=== PATIENT | female | born 2000 | race Two or more races ===

== ENCOUNTER 2025-01-03 22:13 | Emergency (ER) | payer MEDICAID, OTHER ==
[~2025-01-03] VITALS: Ht 172.7 cm; Wt 86.2 kg
[2025-01-03 23:19] LABS: Urine Bacteria MANY /hpf (None Seen); Urine Blood TRACE /uL (Negative); Urine Clarity Turbid (Clear); Urine Color Colorless (Yellow); Urine Mucus FEW (None Seen); Urine Protein, UAD 1+ (Negative); Urine Specific Gravity 1.018 (1.001-1.035); Urine Squamous Epithelial Cell FEW /hpf (<5); Urine Urobilinogen Normal (Negative); Urine WBC 93 /HPF (0-5); Urine WBC Clumps PRESENT /hpf (None Seen)
[2025-01-03] MEDS ORDERED: PREN-96 PO (23:35)
[2025-01-03] MEDS ORDERED: NITR-87 PO (23:44)
--- NOTE | 2025-01-04 12:47 | DVHDS2 ---
Physician Discharge Progress N Final Diagnosis: abd pain 20wks Operations or Procedures: Operations or Procedures nst,sono Condition on Discharge: Good Disposition: Home Discharge Instructions: Diet: Regular Activity: No Restrictions, As Tolerated Medications: na Follow Up Care: Specialist: 3d Discharge Statement: "Patient was advised to return to the ER or call 911 if any headaches, dizziness, shortness of breath, chest pain, abdominal pain, bleeding, fevers, or worsening of medical condition. Patient was counseled about treatment plan, medications, possible side effects, patientverbalized understanding. All questions were answered to the best of my ability. This discharge took greater then 30 minutes in planning, reviewing documentation, counseling the patient, and discussing with other team members." Visit Coding OBGYN Date of Service: Jan 04, 2025 Billing Provider: MARK GÓMEZ DO CONCRETE SCULPTOR Common Visit Codes: [id number] INP/OBS CARE (HIGH) CONCRETE SCULPTOR Procedure Codes: 58169-60- NON-STRESS TEST MARK GÓMEZ DO Jan 04, 2025 12:47
== END 2025-01-03 23:58 | disposition home or self-care (01) ==
LOC: ER 22:13 → LDRP 22:24
PROVIDERS: ADMIT Obstetrics & Gynecology; ATTEND Obstetrics & Gynecology
DX: O26.892 Other specified pregnancy related conditions, second trimester (principal); R10.31 Right lower quadrant pain; Z98.890 Other specified postprocedural states; Z79.899 Other long term (current) drug therapy; Z3A.20 20 weeks gestation of pregnancy
CPT/HCPCS: 59025; 81001; 81002; 94760; G0378

== ENCOUNTER 2025-04-10 19:49 | Observation (INO) | payer MEDICAID ==
[~2025-04-10] VITALS: Ht 172.7 cm; Wt 95.3 kg
[~2025-04-10 19:49] MED LIST: NITR-87 PO; PREN-96 PO
[2025-04-10 20:51] LABS: Basophils # (auto) 0 10 ^3/uL (0-0.2); Basophils % (auto) 0.4 % (0.0-2.0); Eosinophils # (auto) 0.2 10 ^3/uL (0-0.8); Eosinophils % (auto) 1.7 % (0.0-7.0); Hematocrit 29.7 % (36.0-46.0); Hemoglobin 9.9 g/dL (12.2-16.2); Lymphocytes # (auto) 1.5 10 ^3/uL (0.4-5.4); Lymphocytes % (auto) 13.9 % (10.0-50.0); Mean Corpuscular Hemoglobin 29.9 pg (28.0-32.0); Mean Corpuscular Hgb Conc. 33.2 g/dL (32.0-36.0); Mean Corpuscular Volume 90.1 fL (80.0-100.0); Monocytes # (auto) 1.1 10 ^3/uL (0-1.3); Monocytes % (auto) 9.8 % (0.0-12.0); Neutrophils # (auto) 8.1 10 ^3/uL (1.6-8.6); Neutrophils % (auto) 74.2 % (37.0-80.0); Nucleated Red Blood Cells % 0.1 %; Platelet Count (auto) 292 10^3/uL (140-450); Red Cell Distribution Width 18.2 % (11.8-14.3); White Blood Cell 10.9 10^3/uL (4.4-10.8)
--- NOTE | 2025-04-10 21:52 | DVHDS2 ---
Physician Discharge Progress N Final Diagnosis: Iron deficiency anemia in Problems List: (1) Iron deficiency anemia of mother during (2) 34 weeks gestation of Operations or Procedures: Operations or Procedures S: 24yo IUP@34.2wks presents to OB triage with c/o dizziness and feeling lightheaded. She reports barely drinking water today. Denies UCs/LOF/VB/PAZ/vision changes/RUQ pain. Endorses +FM. PNC with Dr. Sary Israel, complicated by iron deficiency anemia, taking oral Iron BID. She states she wants to transfer her care to [facility] OB. O: VSS NST reactive PO hydrated with 2 pitchers of water and pt states she is no longer dizzy Laboratory Tests Test 04/10/25 20:45 04/10/25 21:00 Range/Units White Blood Count 10.9 H 4.4-10.8 10^3/uL Red Blood Count 3.30 L 4.0-5.20 10^6/uL Hemoglobin 9.9 L 12.2-16.2 g/dL Hematocrit 29.7 L 36.0-46.0 % Mean Corpuscular Volume 90.1 80.0-100.0 fL Mean Corpuscular Hemoglobin 29.9 28.0-32.0 pg Mean Corpuscular Hemoglobin Concent 33.2 32.0-36.0 g/dL Red Cell Distribution Width 18.2 H 11.8-14.3 % Platelet Count 292 140-450 10^3/uL Mean Platelet Volume 6.8 L 6.9-10.8 fL Neutrophils (%) (Auto) 74.2 37.0-80.0 % Lymphocytes (%) (Auto) 13.9 10.0-50.0 % Monocytes (%) (Auto) 9.8 0.0-12.0 % Eosinophils (%) (Auto) 1.7 0.0-7.0 % Basophils (%) (Auto) 0.4 0.0-2.0 % Neutrophils # (Auto) 8.1 1.6-8.6 10 ^3/uL Lymphocytes # (Auto) 1.5 0.4-5.4 10 ^3/uL Monocytes # (Auto) 1.1 0-1.3 10 ^3/uL Eosinophils # (Auto) 0.2 0-0.8 10 ^3/uL Basophils # (Auto) 0 0-0.2 10 ^3/uL Nucleated Red Blood Cells 0.1 % POC Glucose 97 70-106 mg/dl A: 24yo IUP@34.2wks Iron deficiency anemia in P: D/C home Encouraged to drink 1 gallon of water a day. FKC/PTL/PreE precautions reviewed. [facility] OB office Business card given to pt. Instructed to call [facility] OB office for appt next week and get records from Dr. Israel's office to bring to the first appt. Dr. Rios consulted, agrees with POC. Condition on Discharge: Stable Disposition: Home Discharge Instructions: Diet: Regular Activity: No Restrictions, As Tolerated Medications: see med list Follow Up Care: Specialist: Instructed to call [facility] OB office for appt next week Discharge Statement: "Patient was advised to return to the ER or call 911 if any headaches, dizziness, shortness of breath, chest pain, abdominal pain, bleeding, fevers, or worsening of medical condition. Patient was counseled about treatment plan, medications, possible side effects, patientverbalized understanding. All questions were answered to the best of my ability. This discharge took greater then 30 minutes in planning, reviewing documentation, counseling the patient, and discussing with other team members." Visit Coding OBGYN Date of Service: Apr 10, 2025 Billing Provider: REBECCA GUDINO CNM FILLING AND STAPLING MACHINE OPERATOR Common Visit Codes: [id number] OBS CARE (HIGH) FILLING AND STAPLING MACHINE OPERATOR Procedure Codes: 64893-13- NON-STRESS TEST REBECCA GUDINO CNM Apr 10, 2025 21:52
== END 2025-04-10 21:32 | disposition home or self-care (01) ==
LOC: LDRP 19:49
PROVIDERS: ADMIT Obstetrics & Gynecology; ATTEND Obstetrics & Gynecology
DX: O99.013 Anemia complicating pregnancy, third trimester (principal); D50.9 Iron deficiency anemia, unspecified; O26.893 Other specified pregnancy related conditions, third trimester; R42 Dizziness and giddiness; Z3A.34 34 weeks gestation of pregnancy; Z79.899 Other long term (current) drug therapy; Z98.890 Other specified postprocedural states
CPT/HCPCS: 36415; 59025; 81002; 82948; 82962; 85025; 94760; G0378

== ENCOUNTER 2025-05-07 14:16 | Observation (INO) | payer MEDICAID ==
[2025-05-07 16:02] LABS: Vaginal Bacteria Few; Vaginal Clue Cells None Seen; Vaginal Epithelial Cells Few; Vaginal Trichomonas Not Present
--- NOTE | 2025-05-07 17:03 | DVH ---
BIOPHYSICAL PROFILE HISTORY: Possible SROM TECHNIQUE: Multiple transabdominal real-time grayscale sonographic images through the gravid uterus of the fetus with duplex Doppler color flow and M-mode spectral analysis FINDINGS: BIOPHYSICAL PROFILE: breathing score: 2 movement score: 2 tone score: 2 Quantitative ALYSIA score: 2 (ALYSIA: 12.4 Cm.) Total score: 8 The cervix is not well-visualized Single live fetus in cephalic presentation. heart rate 140 beats per minute. Fundal placenta without previa or abruption IMPRESSION: Biophysical profile score: 8
--- NOTE | 2025-05-07 18:18 | DVHDS2 ---
Physician Discharge Progress N Final Diagnosis: intact amniotic membranes Problems List: (1) Intact amniotic membranes during in third trimester Operations or Procedures: Operations or Procedures S: 24yo IUP@38.1wks presents to OB triage from [facility] office with c/o LOF at 1330 in the shower today. +FM, denies UCs/VB/PAZ/vision changes/RUQ pain. PNC initially with Dr. Sary Israel then transferred to [facility] with Catie sorto CNM. PNC uncomplicated. GBS negative. O: VSS NST reactive SSE by RN: negative nitrazine and pooling, leukorrhea noted Laboratory Tests Test 05/07/25 15:30 Range/Units Placental [id number]-[id number] Negative Vaginal WBC (Wet Prep) Few Vaginal RBC (Wet Prep) None seen Vaginal Epithelial Cells (Wet Prep) Few Vaginal Bacteria (Wet Prep) Few Vaginal Trichomonas (Wet Prep) Not present Vaginal Yeast (Wet Prep) None seen Vaginal Clue Cells (Wet Prep) None seen A: 24yo IUP@38.1wks Intact amniotic membranes P: D/C home FKC/PreE/Labor precautions reviewed. Other Interventions Other Interventions [place] [id number] Ph: [phone] DIAGNOSTIC IMAGING Diagnostic Imaging Report : [id number] Signed PATIENT: JUAN A MICHAUDCCT: [id number] UNIT: [id number] : 2000 LOC: [facility] ROOM / BED: TRIAGE2 / A AGE / SEX: 24 / F ADM STATUS: DIS IN SERVICE 1611 ORDERING PHYSICIAN: REBECCA SORTO CNM PROCEDURE(s): BPP - BIOPHYSICAL PROFILE REASON: Possible SROM ORDER NUMBER(s): [id number], ACCESSION NUMBER(s): [id number] BIOPHYSICAL PROFILE HISTORY: Possible SROM TECHNIQUE: Multiple transabdominal real-time grayscale sonographic images through the gravid uterus of the fetus with duplex Doppler color flow and M-mode spectral analysis FINDINGS: BIOPHYSICAL PROFILE: breathing score: 2 movement score: 2 tone score: 2 Quantitative ALYSIA score: 2 (ALYSIA: 12.4 Cm.) Total score: 8 The cervix is not well-visualized Single live fetus in cephalic presentation. heart rate 140 beats per mi nute. Fundal placenta without previa or abruption IMPRESSION: Biophysical profile score: 8 ATED BY: ANI SHEPHERD DO DICTATED DATE/TIME: 05/07/25 1700 SIGNED BY: ANI SHEPHERD DO SIGNED DATE/TIME: 05/07/25 1700 CC: Condition on Discharge: Stable Disposition: Home Discharge Instructions: Diet: Regular Activity: No Restrictions, As Tolerated Medications: see med list Follow Up Care: Specialist: f/u with NEYMAR as scheduled on 05/14/25. Discharge Statement: "Patient was advised to return to the ER or call 911 if any headaches, dizziness, shortness of breath, chest pain, abdominal pain, bleeding, fevers, or worsening of medical condition. Patient was counseled about treatment plan, medications, possible side effects, patientverbalized understanding. All questions were answered to the best of my ability. This discharge took greater then 30 minutes in planning, reviewing documentation, counseling the patient, and discussing with other team members." Visit Coding OBGYN Date of Service: May 07, 2025 Billing Provider: REBECCA SORTO CNM VAMP STITCHER Common Visit Codes: [id number] OBS CARE (MOD) VAMP STITCHER Procedure Codes: 90531-49- NON-STRESS TEST REBECCA SORTO CNM May 07, 2025 18:18
== END 2025-05-07 16:49 | disposition home or self-care (01) ==
LOC: LDRP 14:16
PROVIDERS: ADMIT Obstetrics & Gynecology; ATTEND Obstetrics & Gynecology
DX: O34.63 Maternal care for abnormality of vagina, third trimester (principal); N89.8 Other specified noninflammatory disorders of vagina; Z3A.38 38 weeks gestation of pregnancy; Z79.899 Other long term (current) drug therapy; Z98.890 Other specified postprocedural states
CPT/HCPCS: 59025; 76819; 81002; 84112; 87210; G0378

== ENCOUNTER 2025-05-21 11:00 | Inpatient (IN) | payer MEDICAID ==
[~2025-05-21] VITALS: Ht 172.7 cm; Wt 97.5 kg
--- NOTE | 2025-05-21 11:59 | DVH ---
BIOPHYSICAL PROFILE HISTORY: term Comparison Study: US BIOPHYSICAL PROFILE on DOS: 05/07/25 TECHNIQUE: Multiple real-time grayscale sonographic images through the gravid uterus of the fetus wi th duplex Doppler color flow and M-mode spectral analysis FINDINGS: BIOPHYSICAL PROFILE: breathing score: 2 movement score: 2 tone score: 2 Quantitative ALYSIA score: 2 (ALYSIA: 14.7 Cm.) Total score: 8 The cervix is not visualized Single live fetus in cephalic presentation. heart rate 130 beats per minute. Posterior placenta without previa or abruption IMPRESSION: Biophysical profile score: 8
[2025-05-21] MEDS ORDERED: LIDOCAINE 2%HCL (LOCAL ANESTH.) INJ 20ML MDV IJ PRN (16:15)
[2025-05-21 16:32] LABS: Hematocrit 30.6 % (36.0-46.0); Hemoglobin 10.3 g/dL (12.2-16.2); Mean Corpuscular Hemoglobin 29.8 pg (28.0-32.0); Mean Corpuscular Volume 88.5 fL (80.0-100.0); Nucleated Red Blood Cells % 0.4 %
[2025-05-21 16:45] LABS: Alanine Aminotransferase 17 U/L (7-40); Albumin 3.8 g/dL (3.2-4.8); Alkaline Phosphatase 107 U/L (46-116); Anion Gap 9 (5-15); Bilirubin, Total 0.5 mg/dL (0.2-1.0); Calcium 8.9 mg/dL (8.7-10.4); Carbon Dioxide 22 mmol/L (20-31); Glucose 79 mg/dL (74-106); Potassium 3.7 mmol/L (3.5-5.1); Sodium 138 mmol/L (136-145); Total Protein 6.1 g/dL (5.7-8.2)
[2025-05-21 16:46] LABS: INR 0.93 (0.9-1.15); Partial Thromboplastin Time 26.2 SEC (24.5-34.5); Prothrombin Time 9.9 sec (9.3-11.8)
[2025-05-21 16:47] LABS: BUN/Creatinine Ratio 9.6 (10.0-20.0); Blood Urea Nitrogen < 5 mg/dL (9-23); Chloride 107 mmol/L (98-107)
--- NOTE | 2025-05-21 16:56 | DVH ---
LIMITED OB ULTRASOUND > 14 WKS: HISTORY: Cat II tracing TECHNIQUE: Multiple real-time grayscale images of the gravid uterus with duplex Doppler color flow an d M-mode spectral analysis. TRANSDUCER: Transabdominal FINDINGS: IUP single live fetus at 39 weeks 5 days based on composite averages of the BPD, head circumference, abdominal circumference and femur length Estimated weight 38 L3 ; 8 lb 6 oz grams heart rate 139.81 beats per minute MVP: 5.8 cm Cervix not visible Cephalic Presentation Posterior Grade 2-3 Placenta without previa or abruption. BPD: 9.84 cm consistent with 40 weeks 2 days ; range 37 weeks 1 day- 43 weeks 4 days HC: 34.95 cm consistent with 40 weeks 4 days range 38 weeks 0 days - 43 weeks 2 days AC: 35.44 cm consistent with 39 weeks 2 days range 36 weeks 2 days- 42 weeks 3 days FL: 7.57 cm consistent with 38 weeks 5 days range 35 weeks 4 days 41 weeks 6 days. FL/AC: 21.36 range 20-24 FL/HC: 21.66 range 20.67-22.76 HC/AC: 0.99 range 0.89 - 1.04) HR: 140 beats per minute CI: 81.56 range 70-86 EFW: 38 0 3 g +/-570.5 g (8 lb 6 oz +/-1 lb 4 oz) IMPRESSION: 1. IUP single live fetus at 39 weeks 5 days AUA corresponding to an ENEIDA of 05/23/2025 2. FHR: 140 bpm
[2025-05-21] MEDS: DINOPROSTONE 10MG VAG SUPP PV ONE (17:02)
--- NOTE | 2025-05-21 17:57 | DVHHP2 ---
OB CC & HPI Date Date of Admission: May 21, 2025 Patient Identification: : 2 Para: 0 EDC: May 20, 2025 EGA: 40.1wks Chief Complaints: Reason for admission: induction of labor Indication for induction: other (Category 2 EFM) Admission Nurse Assessment Rev: Yes History of Present Complaints 24y/o IUP@40.1wks that presents to OB triage for NST/BPP term . Category II EFM noted, pt repositioned and IV fluid bolus given. IOL recommended. Dr. Rios offered primary section due to EFW 3803g today. Discussed shoulder dystocia risks of possible erbs palsy, broken clavicle, broken humerus, and asphyxia. Pt verbalized understanding and wants to proceed with IOL for vaginal delivery, declined c/s. Pt having some UCs. Denies LOF/VB/PAZ/vision changes/RUQ pain. Endorses +FM. PNC with Dr. Israel initially then transferred care to [facility] with Catie Torres CNM, PNC uncomplicated. GTT wnl, dating based on LMP c/w 13wk sono, GBS negative. Past Medical History Cardiac: No pertinent Hx Pulmonary: No pertinent Hx Central Nervous System: No pertinent Hx GI: No pertinent Hx Hemotology/Oncology: No pertinent Hx Hepatobiliary: No pertinent Hx Psychiatric: No pertinent Hx Musculoskeletal: No pertinent Hx Rheumotologic: No pertinent Hx Infectious Disease: No peritnent Hx ENT: No pertinent Hx Renal/: No pertinent Hx Endocrine: No pertinent Hx Dermatology: Other (keloid on Right ear) Past Surgical History: No pertinent Hx OB History OB History Care: Good Care Ultrasounds: Normal mid trimester US Obstetrical Complications: None Medical Complications: None Allergies: Coded Allergies: NO KNOWN ALLERGIES (Unverified , 01/03/25) Home Meds Reported Medications Nitrofurantoin Monohydrate Mac (Macrobid) 100 Mg Cap, 100 MG PO for 7 Days, CAP 01/03/25 Vit W/ Ferrous Fumara ( One Daily) Daily Tab, 1 TAB PO DAILY, #30 TAB 11 Refills 01/03/25 Current Medications Current Medications Medications (Trade) Dose Ordered Sig/Jose Carlos Route PRN Reason Start Time Stop Time Status Last Admin Lactated Ringer's 1,000 ml @ 125 mls/hr Q8H IV 05/21/25 16:15 Witch Stephania (Tucks) 1 pad PRN PRN TOP PERINEAL AREA DISCOMFORT 05/21/25 16:15 Sodium Lauryl Sulfate (Phisoderm) 240 ml PRN PRN TOP PERINEAL AREA DISCOMFORT 05/21/25 16:15 Benzocaine (Dermoplast) 1 applic PRN PRN TOP PERINEAL AREA DISCOMFORT 05/21/25 16:15 Lidocaine HCl (Xylocaine) 20 ml ONCE PRN IJ PERINEAL AREA DISCOMFORT 05/21/25 16:15 Family & Social History Family/Social History Past Family/Social History: denies Blood Type: O+ Rubella: immune RPR/VDRL: Negative GBS Status: Negative HBsAG: Negative Review of Systems Constitutional: No symptom reported Ears, Nose, & Throat: No symptom reported Eyes: No symptom reported Pulmonary/Respiratory: No symptom reported Cardiovascular: No symptom reported Gastrointestinal: No symptom reported Genitourinary: No symptom reported Musculoskeletal: No symptom reported Skin: No symptom reported Psychiatric: No symptom reported Endocrine: No symptom reported Hemotologic/Lymphatic: No symptom reported OB Admission Exam Physical Exam Vitals: VSS, see CPN [place] [id number] Ph: [phone] DIAGNOSTIC IMAGING Diagnostic Imaging Report : [id number] Signed PATIENT: JUAN A MICHAUDCCT: [id number] UNIT: [id number] : 2000 LOC: [facility] ROOM / BED: TRIAGE2 / A AGE / SEX: 24 / F ADM STATUS: ADM IN SERVICE 1435 ORDERING PHYSICIAN: MARK RIOS DO PROCEDURE(s): OBUS - OB ULTRASOUND COMP GTR 14 WKS REASON: Cat II tracing ORDER NUMBER(s): [id number], ACCESSION NUMBER(s): [id number] LIMITED OB ULTRASOUND > 14 WKS: HISTORY: Cat II tracing TECHNIQUE: Multiple real-time grayscale images of the gravid uterus with duplex Doppler color flow and M-mode spectral analysis. TRANSDUCER: Transabdominal FINDINGS: IUP single live fetus at 39 weeks 5 days based on composite averages of the BPD, head circumference, abdominal circumference and femur length Estimated weight 38 L3 ; 8 lb 6 oz grams heart rate 139.81 beats per minute MVP: 5.8 cm Cervix not visible Cephalic Presentation Posterior Grade 2-3 Placenta without previa or abruption. BPD: 9.84 cm consistent with 40 weeks 2 days ; range 37 weeks 1 day- 43 weeks 4 days HC: 34.95 cm consistent with 40 weeks 4 days range 38 weeks 0 days - 43 weeks 2 days AC: 35.44 cm consistent with 39 weeks 2 days range 36 weeks 2 days- 42 weeks 3 days FL: 7.57 cm consistent with 38 weeks 5 days range 35 weeks 4 days 41 weeks 6 days. FL/AC: 21.36 range 20-24 FL/HC: 21.66 range 20.67-22.76 HC/AC: 0.99 range 0.89 - 1.04) HR: 140 beats per minute CI: 81.56 range 70-86 EFW: 38 0 3 g +/-570.5 g (8 lb 6 oz +/-1 lb 4 oz) IMPRESSION: 1. IUP single live fetus at 39 weeks 5 days AUA corresponding to an ENEIDA of 05/23/2025 2. FHR: 140 bpm ATED BY: ABI ESCALANTE Jr., DO DICTATED DATE/TIME: 05/21/251653 SIGNED BY: ABI ESCALANTE Jr., SIGNED DATE/TIME: 05/21/251653 CC: HEENT: TMs Normal, Fontanelles Normal, Nasal Mucosa Normal, Eyes non-injected, Oropharynx Normal, PERRLA, Moist Membranes, EOMI Heart: Rhythm Normal Lungs: Clear Abdomen: Gravid Extremities: Normal Reflexes: Normal Pelvic Exam: cervidil placed Cervical Dilatation: 1cm Effacement: 50% Station: -2 Membranes: Intact Heart Rate: 140's Accelerations: Accelerations Present Decelerations: No Decelerations Group Home Variability: Average (6-25) Contractions on Admission: 6-10 Minutes Apart Date/Time Contractions Began: 05/21/2025 Frequency of Contractions: 2-8 min Duration: see CPN Intensity: Mild OB Plan Plan Admitting Diagnosis: 24yo IUP@40.1wks Induction of Labor for Category II EFM Intact Amniotic Membranes GBS negative Plan: Induction Induction Methd: Cervidal protocol Other Plan: Cervidil for IOL, Will be in place for 12 hours unless otherwise indicated Pain mgmt PRN Frequent position changes in and out of bed encouraged Limit SVE unless necessary Intrauterine resuscitation PRN Anticipate Visit Coding OBGYN Date of Service: May 21, 2025 Billing Provider: REBECCA TORRES CNM ICE CREAM SERVER Common Visit Codes: [id number] INP/OBS CARE (MOD) ICE CREAM SERVER Procedure Codes: 90152-87- NON-STRESS TEST MARLENY OJEDA May 21, 2025 17:57
[2025-05-21 20:38] LABS: Urine Protein, UAD Negative (Negative)
[2025-05-21 20:48] LABS: Amphetamine Screen, Urine Neg (NEGATIVE); Barbiturate Scree,Urine Neg (NEGATIVE); Benzodiazephine Screen, Urine Neg (NEGATIVE); Cannabinoid Screen, Urine Neg (NEGATIVE); Cocaine Screen, Urine Neg (NEGATIVE); Opiate Scree,Urine Neg (NEGATIVE); Phencyclidine Screen, Urine Neg (NEGATIVE)
--- NOTE | 2025-05-21 21:09 | DVHPN2 ---
CNM Labor Progress Note Date and Time Seen Date Seen: May 21, 2025 Time Seen: 20:40 Subjective Patient reports: Feels worse (pt c/o SOB) Subjective Comment 24yo IUP @ 40.1wk, reports new onset of SOB and heavy feeling in chest, denies anxiety but partner reports pt has anxiety like this in the past Objective Vital Signs VSS, see CPN Monitoring Method Monitoring Method: External Heart Rate Heart Rate Baseline: 150 Heart Rate Variability: Moderate Presence of FHR Accelerations: Yes Presence of FHR Decelerations: No Changes in Trends of Patterns: No Are all 5 Components of the FH: Yes Contractions Contractions Frequency: Occasional Duration of Contraction: 120 Contractions Intensity: Mild Contractions Resting Tone: Relaxed Membranes Membranes: Intact Vaginal Exam Vag Exam Deferred: Yes Medications Medications - Pitocin: No Medication - Epidural: No Medication - Other cervidil placed for IOL Lab Results Lab Results Current Medications Medications (Trade) Dose Ordered Sig/Jose Cralos Start Time Stop Time Status Last Admin Dose Admin Dinoprostone (Cervidil Suppository) 1 supp ONCE ONCE 05/21/25 16:15 05/21/25 16:33 DC 05/21/25 17:02 1 SUPP Lactated Ringer's 1,000 ml @ 125 mls/hr Q8H 05/21/25 16:15 Witch Stephania (Tucks) 1 pad PRN PRN 05/21/25 16:15 Sodium Lauryl Sulfate (Phisoderm) 240 ml PRN PRN 05/21/25 16:15 Benzocaine (Dermoplast) 1 applic PRN PRN 05/21/25 16:15 Lidocaine HCl (Xylocaine) 20 ml ONCE PRN 05/21/25 16:15 Laboratory Tests Test 05/21/25 20:30 05/21/25 16:10 Range/Units Urine Color Pending Urine Clarity Pending Urine pH Pending Urine Specific [place] Pending Urine Protein Pending Urine Ketones Pending Urine Blood Pending Urine Nitrite Pending Urine Bilirubin Pending Urine Urobilinogen Pending Urine Leukocyte Esterase Pending Urine RBC Pending Urine Microscopic WBC Pending Urine Squamous Epithelial Cells Pending Urine Bacteria Pending Urine Glucose Pending Urine Opiates Screen Neg NEGATIVE Urine Fentanyl Screen Neg NEGATIVE Urine Barbiturates Screen Neg NEGATIVE Urine Phencyclidine Screen Neg NEGATIVE Urine Amphetamines Screen Neg NEGATIVE Urine Benzodiazepines Screen Neg NEGATIVE Urine Cocaine Screen Neg NEGATIVE Urine Cannabinoids Screen Neg NEGATIVE White Blood Count 10.5 4.4-10.8 10^3/uL Red Blood Count 3.46 L 4.0-5.20 10^6/uL Hemoglobin 10.3 L 12.2-16.2 g/dL Hematocrit 30.6 L 36.0-46.0 % Mean Corpuscular Volume 88.5 80.0-100.0 fL Mean Corpuscular Hemoglobin 29.8 28.0-32.0 pg Mean Corpuscular Hemoglobin Concent 33.7 32.0-36.0 g/dL Red Cell Distribution Width 18.2 H 11.8-14.3 % Platelet Count 284 140-450 10^3/uL Mean Platelet Volume 7.6 6.9-10.8 fL Neutrophils (%) (Auto) 75.8 37.0-80.0 % Lymphocytes (%) (Auto) 13.1 10.0-50.0 % Monocytes (%) (Auto) 8.9 0.0-12.0 % Eosinophils (%) (Auto) 1.2 0.0-7.0 % Basophils (%) (Auto) 1.0 0.0-2.0 % Neutrophils # (Auto) 8.0 1.6-8.6 10 ^3/uL Lymphocytes # (Auto) 1.4 0.4-5.4 10 ^3/uL Monocytes # (Auto) 0.9 0-1.3 10 ^3/uL Eosinophils # (Auto) 0.1 0-0.8 10 ^3/uL Basophils # (Auto) 0.1 0-0.2 10 ^3/uL Nucleated Red Blood Cells 0.4 % Prothrombin Time 9.9 9.3-11.8 sec Prothrombin Time INR 0.93 0.9-1.15 Activated Partial Thromboplast Time 26.2 24.5-34.5 SEC Sodium Level 138 136-145 mmol/L Potassium Level 3.7 3.5-5.1 mmol/L Chloride Level 107 98-107 mmol/L Carbon Dioxide Level 22 20-31 mmol/L Anion Gap 9 5-15 Blood Urea Nitrogen < 5 L 9-23 mg/dL Creatinine 0.52 L 0.550-1.02 mg/dL Glomerular Filtration Rate Calc 134 >90 mL/min BUN/Creatinine Ratio 9.6 L 10.0-20.0 Serum Glucose 79 74-106 mg/dL Calcium Level 8.9 8.7-10.4 mg/dL Total Bilirubin 0.5 0.2-1.0 mg/dL Aspartate Amino Transferase (AST) 23 13-40 U/L Alanine Aminotransferase (ALT) 17 7-40 U/L Alkaline Phosphatase 107 46-116 U/L Total Protein 6.1 5.7-8.2 g/dL Albumin 3.8 3.2-4.8 g/dL Assessment Assessment A: 24yo IUP@40.1wks Induction of Labor Category I EFM Intact Membranes GBS negative Plan Plan EKG ordered Pain mgmt PRN Frequent position changes in and out of bed encouraged Limit SVE unless necessary Intrauterine resuscitation PRN Anticipate Plan discussed with: Patient, Other (partner) Visit Coding OBGYN Date of Service: May 21, 2025 Billing Provider: REBECCA GUDINO CNM CADDIE SUPERVISOR Common Visit Codes: [id number] INP/OBS CARE(MOD) REBECCA GUDINO CNM May 21, 2025 21:09
[2025-05-21] MEDS: DERMOPLAST 60ML BOTTLE TOP PRN (22:09)
[2025-05-21] MEDS: PHISODERM TOP SOLN 240ML BTL TOP PRN (22:09)
[2025-05-21] MEDS: WITCH HAZEL-GLYCERIN PAD TOP PRN (22:09)
[2025-05-22] MEDS: ROPIVACAINE HCL 100 ML ONE
[2025-05-22] MEDS: LACTATED RINGER'S 1,000 ML IV SCH (02:24)
--- NOTE | 2025-05-22 05:29 | DVHPN2 ---
OB Labor Progress Note Date and Time Seen Date Seen: May 22, 2025 Time Seen: 05:05 Subjective Patient reports: No new complaints Subjective Comment 24y/o IUP @ 40.2wk IOL, reports SOB resolved Objective Vital Signs VSS see CPN Monitoring Method Monitoring Method: External Heart Rate Heart Rate Baseline: 125 Heart Rate Variability: Moderate Presence of FHR Accelerations: Yes Presence of FHR Decelerations: No Changes in Trends of Patterns: No Are all 5 Components of the FH: Yes Contractions Contractions Frequency: Occasional (1-3 min, lots of irritability) Duration of Contraction: 90 Contractions Intensity: Mild Contractions Resting Tone: Relaxed Membranes Membranes: Intact Vaginal Exam Vag Exam Deferred: No (1.550/-3, cervidil taken out) Vaginal Exam Presentation: VTX Vaginal Exam Show: None Medications Medications - Pitocin: No Medication - Epidural: No Lab Results Lab Results Current Medications Medications (Trade) Dose Ordered Sig/Jose Carlos Start Time Stop Time Status Last Admin Dose Admin Dinoprostone (Cervidil Suppository) 1 supp ONCE ONCE 05/21/25 16:15 05/21/25 16:33 DC 05/21/25 17:02 1 SUPP Lactated Ringer's 1,000 ml @ 125 mls/hr Q8H 05/21/25 16:15 05/22/25 13:30 125 MLS/HR Witch Stephania (Tucks) 1 pad PRN PRN 05/21/25 16:15 05/21/25 22:09 1 PAD Sodium Lauryl Sulfate (Phisoderm) 240 ml PRN PRN 05/21/25 16:15 05/21/25 22:09 240 ML Benzocaine (Dermoplast) 1 applic PRN PRN 05/21/25 16:15 05/21/25 22:09 1 APPLIC Lidocaine HCl (Xylocaine) 20 ml ONCE PRN 05/21/25 16:15 Misoprostol (Cytotec) 50 mcg Q4HPRN PRN 05/22/25 05:15 05/22/25 13:30 50 MCG Laboratory Tests Test 05/21/25 20:30 05/21/25 16:10 Range/Units Urine Color Light-yellow Yellow Urine Clarity Clear Clear Urine pH 7.0 5.0-9.0 Urine Specific [place] 1.012 1.001-1.035 Urine Protein Negative Negative Urine Ketones 3+ H Negative Urine Blood Negative Negative /uL Urine Nitrite Negative Negative Urine Bilirubin Negative Negative Urine Urobilinogen Normal Negative mg/dL Urine Leukocyte Esterase 2+ Negative /uL Urine RBC <1 0 - 4 /hpf Urine Microscopic WBC 1 0-5 /HPF Urine Squamous Epithelial Cells Few <5 /hpf Urine Bacteria None seen None Seen /hpf Urine Glucose Normal Normal mg/dL Urine Opiates Screen Neg NEGATIVE Urine Fentanyl Screen Neg NEGATIVE Urine Barbiturates Screen Neg NEGATIVE Urine Phencyclidine Screen Neg NEGATIVE Urine Amphetamines Screen Neg NEGATIVE Urine Benzodiazepines Screen Neg NEGATIVE Urine Cocaine Screen Neg NEGATIVE Urine Cannabinoids Screen Neg NEGATIVE White Blood Count 10.5 4.4-10.8 10^3/uL Red Blood Count 3.46 L 4.0-5.20 10^6/uL Hemoglobin 10.3 L 12.2-16.2 g/dL Hematocrit 30.6 L 36.0-46.0 % Mean Corpuscular Volume 88.5 80.0-100.0 fL Mean Corpuscular Hemoglobin 29.8 28.0-32.0 pg Mean Corpuscular Hemoglobin Concent 33.7 32.0-36.0 g/dL Red Cell Distribution Width 18.2 H 11.8-14.3 % Platelet Count 284 140-450 10^3/uL Mean Platelet Volume 7.6 6.9-10.8 fL Neutrophils (%) (Auto) 75.8 37.0-80.0 % Lymphocytes (%) (Auto) 13.1 10.0-50.0 % Monocytes (%) (Auto) 8.9 0.0-12.0 % Eosinophils (%) (Auto) 1.2 0.0-7.0 % Basophils (%) (Auto) 1.0 0.0-2.0 % Neutrophils # (Auto) 8.0 1.6-8.6 10 ^3/uL Lymphocytes # (Auto) 1.4 0.4-5.4 10 ^3/uL Monocytes # (Auto) 0.9 0-1.3 10 ^3/uL Eosinophils # (Auto) 0.1 0-0.8 10 ^3/uL Basophils # (Auto) 0.1 0-0.2 10 ^3/uL Nucleated Red Blood Cells 0.4 % Prothrombin Time 9.9 9.3-11.8 sec Prothrombin Time INR 0.93 0.9-1.15 Activated Partial Thromboplast Time 26.2 24.5-34.5 SEC Sodium Level 138 136-145 mmol/L Potassium Level 3.7 3.5-5.1 mmol/L Chloride Level 107 98-107 mmol/L Carbon Dioxide Level 22 20-31 mmol/L Anion Gap 9 5-15 Blood Urea Nitrogen < 5 L 9-23 mg/dL Creatinine 0.52 L 0.550-1.02 mg/dL Glomerular Filtration Rate Calc 134 >90 mL/min BUN/Creatinine Ratio 9.6 L 10.0-20.0 Serum Glucose 79 74-106 mg/dL Calcium Level 8.9 8.7-10.4 mg/dL Total Bilirubin 0.5 0.2-1.0 mg/dL Aspartate Amino Transferase (AST) 23 13-40 U/L Alanine Aminotransferase (ALT) 17 7-40 U/L Alkaline Phosphatase 107 46-116 U/L Total Protein 6.1 5.7-8.2 g/dL Albumin 3.8 3.2-4.8 g/dL Hepatitis C Antibody Negative Negative Assessment Assessment 24yo IUP@40.2wks Induction of Labor Category I EFM Intact Membranes GBS negative Plan Plan cytotec PO ordered monitoring per order Pain mgmt PRN Frequent position changes in and out of bed encouraged Limit SVE unless necessary Intrauterine resuscitation PRN Anticipate Plan discussed with: Patient, Other (partner) Visit Coding OBGYN Date of Service: May 22, 2025 Billing Provider: REBECCA GUDINO CNM AIRWORTHINESS SAFETY INSPECTOR Common Visit Codes: [id number] INP/OBS CARE(MOD) MARLENY OJEDA May 22, 2025 05:28
--- NOTE | 2025-05-22 07:31 | ECG ---
[facility] Test Date: 2025-05-21 Test Time: 21:02:22 Pat Name: AMALIA MICHAUD Department: Room: [facility] A Gender: F Sack Cleaning Hand: THUAN : 2000 Requested By: REBECCA GUDINO Order Number: [id number] Reading MD: Devante Danielle Measurements Intervals [place] Rate: 77 P: -20 WV: 124 QRS: 13 QRSD: 72 T: 20 QT: 386 QTc: 436 Interpretive Statements Normal sinus rhythm RSR' or QR pattern in V1 suggests right ventricular conduction delay Electronically Signed On 05-27-2025 18:33:29 PDT by Devante Danielle Please click the below link to view image of tracing.
--- NOTE | 2025-05-22 08:01 | DVHPN2 ---
Chief Complaints Patient reports: No new complaints Nursing reports: No new complaints Objective Medications Current Medications Medications (Trade) Dose Ordered Sig/Jose Carlos Route PRN Reason Start Time Stop Time Status Last Admin Benzocaine (Dermoplast) 1 applic PRN PRN TOP PERINEAL AREA DISCOMFORT 05/21/25 16:15 05/21/25 22:09 Lactated Ringer's 1,000 ml @ 125 mls/hr Q8H IV 05/21/25 16:15 05/22/25 02:24 Lidocaine HCl (Xylocaine) 20 ml ONCE PRN IJ PERINEAL AREA DISCOMFORT 05/21/25 16:15 Misoprostol (Cytotec) 50 mcg Q4HPRN PRN PO CERVICAL RIPENING 05/22/25 05:15 05/22/25 05:31 Sodium Lauryl Sulfate (Phisoderm) 240 ml PRN PRN TOP PERINEAL AREA DISCOMFORT 05/21/25 16:15 05/21/25 22:09 Witch Stephania (Tucks) 1 pad PRN PRN TOP PERINEAL AREA DISCOMFORT 05/21/25 16:15 05/21/25 22:09 Others ve per rn 2cm unchanged Studies Laboratory Tests 05/21/25 16:10 Test 05/21/25 16:10 Range/Units Serum Glucose 79 74-106 mg/dL Ass/Plan Assessment iol Plan pt is having regular ucs ,rec one cervidil and cytotecx1 pt was offered pcs due to efw of baby risk of shoulder dystocia ,brachial plexuses injury but refused pt has been seen by cnm and wishes to cont with her management plan Visit Coding OBGYN Date of Service: May 22, 2025 Billing Provider: MARK GÓMEZ DO ENVIRONMENTAL PROJECT MANAGER Common Visit Codes: [id number] OBS CARE (HIGH), [id number] INP/OBS CARE (HIGH) ENVIRONMENTAL PROJECT MANAGER Procedure Codes: 08372-62- NON-STRESS TEST MARK GÓMEZ DO May 22, 2025 08:01
--- NOTE | 2025-05-22 14:12 | DVHPN2 ---
Chief Complaints Patient reports: No new complaints Nursing reports: No new complaints Objective Medications Current Medications Medications (Trade) Dose Ordered Sig/Jose Carlos Route PRN Reason Start Time Stop Time Status Last Admin Benzocaine (Dermoplast) 1 applic PRN PRN TOP PERINEAL AREA DISCOMFORT 05/21/25 16:15 05/21/25 22:09 Lactated Ringer's 1,000 ml @ 125 mls/hr Q8H IV 05/21/25 16:15 05/22/25 13:30 Lidocaine HCl (Xylocaine) 20 ml ONCE PRN IJ PERINEAL AREA DISCOMFORT 05/21/25 16:15 Misoprostol (Cytotec) 50 mcg Q4HPRN PRN PO CERVICAL RIPENING 05/22/25 05:15 05/22/25 13:30 Sodium Lauryl Sulfate (Phisoderm) 240 ml PRN PRN TOP PERINEAL AREA DISCOMFORT 05/21/25 16:15 05/21/25 22:09 Witch Stephania (Tucks) 1 pad PRN PRN TOP PERINEAL AREA DISCOMFORT 05/21/25 16:15 05/21/25 22:09 Others ve-3cm/50/-2 Studies Laboratory Tests 05/21/25 16:10 Test 05/21/25 16:10 Range/Units Serum Glucose 79 74-106 mg/dL Ass/Plan Assessment iol Plan pt was given another cytotec and will start on pitocin next Visit Coding OBGYN Date of Service: May 22, 2025 Billing Provider: MARK GÓMEZ DO FISHER SCALLOP Common Visit Codes: [id number] OBS CARE (HIGH) FISHER SCALLOP Procedure Codes: 46806-02- NON-STRESS TEST MARK GÓMEZ DO May 22, 2025 14:12
[2025-05-22] MEDS ORDERED: TERBUTALINE SULFATE 1 MG/ML 1ML VIAL SC PRN (17:45)
--- NOTE | 2025-05-22 17:52 | DVHPN2 ---
OB Labor Progress Note Date and Time Seen Date Seen: May 22, 2025 Time Seen: 17:28 Subjective Patient reports: No new complaints Subjective Comment S: pt says she feels stronger UC, denies epidural at this time but would consider other pain mgmt options Objective Vital Signs VSS, see CPN Monitoring Method Monitoring Method: External Heart Rate Heart Rate Baseline: 155 Heart Rate Variability: Moderate Presence of FHR Accelerations: Yes Presence of FHR Decelerations: Yes Heart Rate Type of Decel: Late Decelerations (x1) Changes in Trends of Patterns: No Are all 5 Components of the FH: Yes Contractions Contractions Frequency: Other (1-2.5 min) Duration of Contraction: 100 Contractions Intensity: Moderate Contractions Resting Tone: Relaxed Membranes Membranes: Intact, Bulging (during UC) Vaginal Exam Vag Exam Deferred: No Vaginal Exam Dilation: 4 Vaginal Exam Effacement: 60 Vaginal Exam Station: -1 Vaginal Exam Presentation: VTX Vaginal Exam Show: None Medications Medications - Pitocin: No Medication - Epidural: No Medication - Other s/p cervidil, cytotec PO x3 Lab Results Lab Results Current Medications Medications (Trade) Dose Ordered Sig/Jose Carlos Start Time Stop Time Status Last Admin Dose Admin Dinoprostone (Cervidil Suppository) 1 supp ONCE ONCE 05/21/25 16:15 05/21/25 16:33 DC 05/21/25 17:02 1 SUPP Lactated Ringer's 1,000 ml @ 125 mls/hr Q8H 05/21/25 16:15 05/22/25 13:30 125 MLS/HR Ruth Cat (Tucks) 1 pad PRN PRN 05/21/25 16:15 05/21/25 22:09 1 PAD Sodium Lauryl Sulfate (Phisoderm) 240 ml PRN PRN 05/21/25 16:15 05/21/25 22:09 240 ML Benzocaine (Dermoplast) 1 applic PRN PRN 05/21/25 16:15 05/21/25 22:09 1 APPLIC Lidocaine HCl (Xylocaine) 20 ml ONCE PRN 05/21/25 16:15 Misoprostol (Cytotec) 50 mcg Q4HPRN PRN 05/22/25 05:15 05/22/25 13:30 50 MCG Laboratory Tests Test 05/21/25 20:30 05/21/25 16:10 Range/Units Urine Color Light-yellow Yellow Urine Clarity Clear Clear Urine pH 7.0 5.0-9.0 Urine Specific [place] 1.012 1.001-1.035 Urine Protein Negative Negative Urine Ketones 3+ H Negative Urine Blood Negative Negative /uL Urine Nitrite Negative Negative Urine Bilirubin Negative Negative Urine Urobilinogen Normal Negative mg/dL Urine Leukocyte Esterase 2+ Negative /uL Urine RBC <1 0 - 4 /hpf Urine Microscopic WBC 1 0-5 /HPF Urine Squamous Epithelial Cells Few <5 /hpf Urine Bacteria None seen None Seen /hpf Urine Glucose Normal Normal mg/dL Urine Opiates Screen Neg NEGATIVE Urine Fentanyl Screen Neg NEGATIVE Urine Barbiturates Screen Neg NEGATIVE Urine Phencyclidine Screen Neg NEGATIVE Urine Amphetamines Screen Neg NEGATIVE Urine Benzodiazepines Screen Neg NEGATIVE Urine Cocaine Screen Neg NEGATIVE Urine Cannabinoids Screen Neg NEGATIVE White Blood Count 10.5 4.4-10.8 10^3/uL Red Blood Count 3.46 L 4.0-5.20 10^6/uL Hemoglobin 10.3 L 12.2-16.2 g/dL Hematocrit 30.6 L 36.0-46.0 % Mean Corpuscular Volume 88.5 80.0-100.0 fL Mean Corpuscular Hemoglobin 29.8 28.0-32.0 pg Mean Corpuscular Hemoglobin Concent 33.7 32.0-36.0 g/dL Red Cell Distribution Width 18.2 H 11.8-14.3 % Platelet Count 284 140-450 10^3/uL Mean Platelet Volume 7.6 6.9-10.8 fL Neutrophils (%) (Auto) 75.8 37.0-80.0 % Lymphocytes (%) (Auto) 13.1 10.0-50.0 % Monocytes (%) (Auto) 8.9 0.0-12.0 % Eosinophils (%) (Auto) 1.2 0.0-7.0 % Basophils (%) (Auto) 1.0 0.0-2.0 % Neutrophils # (Auto) 8.0 1.6-8.6 10 ^3/uL Lymphocytes # (Auto) 1.4 0.4-5.4 10 ^3/uL Monocytes # (Auto) 0.9 0-1.3 10 ^3/uL Eosinophils # (Auto) 0.1 0-0.8 10 ^3/uL Basophils # (Auto) 0.1 0-0.2 10 ^3/uL Nucleated Red Blood Cells 0.4 % Prothrombin Time 9.9 9.3-11.8 sec Prothrombin Time INR 0.93 0.9-1.15 Activated Partial Thromboplast Time 26.2 24.5-34.5 SEC Sodium Level 138 136-145 mmol/L Potassium Level 3.7 3.5-5.1 mmol/L Chloride Level 107 98-107 mmol/L Carbon Dioxide Level 22 20-31 mmol/L Anion Gap 9 5-15 Blood Urea Nitrogen < 5 L 9-23 mg/dL Creatinine 0.52 L 0.550-1.02 mg/dL Glomerular Filtration Rate Calc 134 >90 mL/min BUN/Creatinine Ratio 9.6 L 10.0-20.0 Serum Glucose 79 74-106 mg/dL Calcium Level 8.9 8.7-10.4 mg/dL Total Bilirubin 0.5 0.2-1.0 mg/dL Aspartate Amino Transferase (AST) 23 13-40 U/L Alanine Aminotransferase (ALT) 17 7-40 U/L Alkaline Phosphatase 107 46-116 U/L Total Protein 6.1 5.7-8.2 g/dL Albumin 3.8 3.2-4.8 g/dL Hepatitis C Antibody Negative Negative Assessment Assessment A: 24yo IUP@40.2wks Induction of Labor Iron def anemia Category II EFM Intact Membranes GBS negative Plan Plan P: Pain mgmt PRN Frequent position changes in and out of bed encouraged Limit SVE unless necessary Intrauterine resuscitation PRN Anticipate Start IV pitocin when cat 1 tracing Plan discussed with: Patient Visit Coding OBGYN Date of Service: May 22, 2025 Billing Provider: REBECCA GUDINO CNM TRAUMA DOCTOR Common Visit Codes: [id number] INP/OBS CARE(MOD) MARLENY OJEDA May 22, 2025 17:52
[2025-05-22] MEDS: LACT. RINGERS/OXYTOCIN 20UNITS 1,000 ML IV SCH (18:02)
[2025-05-22] MEDS: LACTATED RINGER'S 500 ML IV ONE (22:30)
--- NOTE | 2025-05-22 22:46 | DVHPN2 ---
OB Labor Progress Note Date and Time Seen Date Seen: May 22, 2025 Time Seen: 22:12 Subjective Patient reports: Feels worse (pt feels more pain) Subjective Comment S: pt feels more uncomfortable and in pain, denies wanting pain med at this time Objective Vital Signs VSS see CPN Monitoring Method Monitoring Method: External Heart Rate Heart Rate Baseline: 155 Heart Rate Variability: Moderate Presence of FHR Accelerations: Yes Presence of FHR Decelerations: No Changes in Trends of Patterns: No Are all 5 Components of the FH: Yes Contractions Contractions Frequency: Other (1-6 min) Duration of Contraction: 100 Contractions Intensity: Moderate Contractions Resting Tone: Relaxed Membranes Membranes: Ruptured (AROM) Amniotic Fluid Color: Clear (blood tinged) Vaginal Exam Vag Exam Deferred: No Vaginal Exam Dilation: 5 Vaginal Exam Effacement: 60 Vaginal Exam Station: -1 Vaginal Exam Presentation: VTX Vaginal Exam Show: Small Medications Medications - Pitocin: Yes (2 mu) Medication - Epidural: No Lab Results Lab Results Current Medications Medications (Trade) Dose Ordered Sig/Jose Carlos Start Time Stop Time Status Last Admin Dose Admin Dinoprostone (Cervidil Suppository) 1 supp ONCE ONCE 05/21/25 16:15 05/21/25 16:33 DC 05/21/25 17:02 1 SUPP Lactated Ringer's 1,000 ml @ 125 mls/hr Q8H 05/21/25 16:15 05/22/25 13:30 125 MLS/HR Witch Stephania (Tucks) 1 pad PRN PRN 05/21/25 16:15 05/21/25 22:09 1 PAD Sodium Lauryl Sulfate (Phisoderm) 240 ml PRN PRN 05/21/25 16:15 05/21/25 22:09 240 ML Benzocaine (Dermoplast) 1 applic PRN PRN 05/21/25 16:15 05/21/25 22:09 1 APPLIC Lidocaine HCl (Xylocaine) 20 ml ONCE PRN 05/21/25 16:15 Misoprostol (Cytotec) 50 mcg Q4HPRN PRN 05/22/25 05:15 05/22/25 13:30 50 MCG Oxytocin 1,000 ml @ 6 ml/hr Q24H 05/22/25 17:45 05/22/25 18:02 6 ML/HR Terbutaline Sulfate (Brethine Inj) 0.25 mg ONCE PRN 05/22/25 17:45 Laboratory Tests Test 05/21/25 20:30 05/21/25 16:10 Range/Units Urine Color Light-yellow Yellow Urine Clarity Clear Clear Urine pH 7.0 5.0-9.0 Urine Specific [place] 1.012 1.001-1.035 Urine Protein Negative Negative Urine Ketones 3+ H Negative Urine Blood Negative Negative /uL Urine Nitrite Negative Negative Urine Bilirubin Negative Negative Urine Urobilinogen Normal Negative mg/dL Urine Leukocyte Esterase 2+ Negative /uL Urine RBC <1 0 - 4 /hpf Urine Microscopic WBC 1 0-5 /HPF Urine Squamous Epithelial Cells Few <5 /hpf Urine Bacteria None seen None Seen /hpf Urine Glucose Normal Normal mg/dL Urine Opiates Screen Neg NEGATIVE Urine Fentanyl Screen Neg NEGATIVE Urine Barbiturates Screen Neg NEGATIVE Urine Phencyclidine Screen Neg NEGATIVE Urine Amphetamines Screen Neg NEGATIVE Urine Benzodiazepines Screen Neg NEGATIVE Urine Cocaine Screen Neg NEGATIVE Urine Cannabinoids Screen Neg NEGATIVE White Blood Count 10.5 4.4-10.8 10^3/uL Red Blood Count 3.46 L 4.0-5.20 10^6/uL Hemoglobin 10.3 L 12.2-16.2 g/dL Hematocrit 30.6 L 36.0-46.0 % Mean Corpuscular Volume 88.5 80.0-100.0 fL Mean Corpuscular Hemoglobin 29.8 28.0-32.0 pg Mean Corpuscular Hemoglobin Concent 33.7 32.0-36.0 g/dL Red Cell Distribution Width 18.2 H 11.8-14.3 % Platelet Count 284 140-450 10^3/uL Mean Platelet Volume 7.6 6.9-10.8 fL Neutrophils (%) (Auto) 75.8 37.0-80.0 % Lymphocytes (%) (Auto) 13.1 10.0-50.0 % Monocytes (%) (Auto) 8.9 0.0-12.0 % Eosinophils (%) (Auto) 1.2 0.0-7.0 % Basophils (%) (Auto) 1.0 0.0-2.0 % Neutrophils # (Auto) 8.0 1.6-8.6 10 ^3/uL Lymphocytes # (Auto) 1.4 0.4-5.4 10 ^3/uL Monocytes # (Auto) 0.9 0-1.3 10 ^3/uL Eosinophils # (Auto) 0.1 0-0.8 10 ^3/uL Basophils # (Auto) 0.1 0-0.2 10 ^3/uL Nucleated Red Blood Cells 0.4 % Prothrombin Time 9.9 9.3-11.8 sec Prothrombin Time INR 0.93 0.9-1.15 Activated Partial Thromboplast Time 26.2 24.5-34.5 SEC Sodium Level 138 136-145 mmol/L Potassium Level 3.7 3.5-5.1 mmol/L Chloride Level 107 98-107 mmol/L Carbon Dioxide Level 22 20-31 mmol/L Anion Gap 9 5-15 Blood Urea Nitrogen < 5 L 9-23 mg/dL Creatinine 0.52 L 0.550-1.02 mg/dL Glomerular Filtration Rate Calc 134 >90 mL/min BUN/Creatinine Ratio 9.6 L 10.0-20.0 Serum Glucose 79 74-106 mg/dL Calcium Level 8.9 8.7-10.4 mg/dL Total Bilirubin 0.5 0.2-1.0 mg/dL Aspartate Amino Transferase (AST) 23 13-40 U/L Alanine Aminotransferase (ALT) 17 7-40 U/L Alkaline Phosphatase 107 46-116 U/L Total Protein 6.1 5.7-8.2 g/dL Albumin 3.8 3.2-4.8 g/dL Hepatitis C Antibody Negative Negative Assessment Assessment A: 24yo IUP@40.2wks Induction of Labor Iron def anemia Category I EFM AROM, clear, blood tinged GBS negative Plan Plan P: monitoring per order Continue pitocin titration as ordered Pain mgmt PRN Frequent position changes in and out of bed encouraged Limit SVE unless necessary Intrauterine resuscitation PRN Anticipate Plan discussed with: Patient, Other (partner) Visit Coding OBGYN Date of Service: May 22, 2025 Billing Provider: REBECCA GUDINO CNM HEAD WORKER Common Visit Codes: [id number] INP/OBS CARE(MOD) MARLENY OJEDA May 22, 2025 22:46
[2025-05-22] MEDS ORDERED: NALOXONE HCL 0.4 MG/ML VIAL IV ONE (23:15)
[2025-05-22] MEDS ORDERED: LIDOCAINE HCL 2 %PF INJ 10ML AMP IJ ONE (23:19)
[2025-05-22] MEDS: LIDOCAINE HCL 2 %PF INJ 10ML AMP IJ ONE (23:33)
[2025-05-23] MEDS ORDERED: CARBOPROST TROMETHAMINE 250 MCG/1ML VIAL IM PRN (04:30)
[2025-05-23] MEDS: ACETAMINOPHEN IV 1000 MG/100ML (10MG/ML) IV ONE (04:49)
[2025-05-23] MEDS: AMPICILLIN SOD 1 GM VL ONE (05:27)
[2025-05-23] MEDS ORDERED: AMPICILLIN SOD 2GM INJ 2 GM in SODIUM CHL 0.9% 100 ML IV SCH (06:00)
[2025-05-23] MEDS: GENTAMICIN SULFATE 120 MG in D5W 5% 100 ML IV ONE (06:17)
[2025-05-23] MEDS: GENTAMICIN SULFATE 4 ML ONE (06:30)
[2025-05-23] MEDS ORDERED: ACETAMINOPHEN 325 MG TAB PO PRN (07:15)
--- NOTE | 2025-05-23 07:57 | LDN2 ---
Labor and Delivery Note Date 05/23/25 Age 24 2 Para 1 now AB 1 EDC 05/20/25 EGA 40.3wks Diagnosis IOL for category 2 EFM, then and chorio Vaginal Delivery: VTX Vacuum Assisted: No Placenta: Spontaneous Sex: Female Weight 3920g Apgars 8/8 Nuchal Cord Transected: No Amniotic Fluid: Clear Anesthesia epidural and local Episiotomy: No Extension: No Repaired with 3-0 vicryl SH EBL QBL 800ml Labs Blood Bank 05/21/25 16:10: Blood Type O POSITIVE Complications chorioamnionitis - continue IV amp and gent for 24 hours, pt afebrile now after tylenol dose PPH - TXA 1g IVPB given 30 minutes prior to , IV pitocin bolus, IM methergine x1, cytotec 800mcg MD, manual sweep done and uterus cleared of all clots and trailing amniotic membranes. QBL 800ml Conditions stable Card Seller Darren Comments/Significant Med Eitan At 0641 this 24yo now delivered a viable Female by w/ APGARS 8/8. LULU presentation. Infant placed skin to skin on pts chest. Cord clamped and cut after 1 minute. Cord blood sent. Cord gases collected (venous pH 7.37). Intact 3-vessel cord placenta delivered spontaneously, Jeny. See PPH note above. Placenta sent to pathology. Patient had epidural and local anesthesia. Cervix/vagina/perineum inspected (intact) and bilateral labial lacerations present which was repaired with 3-0 vicryl suture. Fundus at U, firm, midline, and light lochia. QBL 800ml. VSS. Count correct x2. Patient to care and baby to couplet care, both stable. EDDIE Vizcarra delivered baby and did the suturing with my supervision, Catie Torres CNM. Visit Coding OBGYN Date of Service: May 23, 2025 Billing Provider: REBECCA TORRES CNM MEDICAL ADMINISTRATOR Common Visit Codes: PROCEDURE ONLY MEDICAL ADMINISTRATOR Procedure Codes: [id number] DEL INCLUDING REBECCA TORRES CNM May 23, 2025 07:57
[2025-05-23] MEDS: IBUPROFEN 800 MG TAB PO ONE (09:21)
[2025-05-23 10:39] VITALS: TEMP 99.3
[2025-05-23 11:00] VITALS: BP 120/65; PULSE 104; RESP 18; TEMP 99.1; O2SAT 97
[2025-05-23] MEDS: LIDOCAINE 2%HCL (LOCAL ANESTH.) INJ 10ml MDV IJ ONE (11:08)
[2025-05-23] MEDS: LACT. RINGERS/OXYTOCIN 20UNITS 500 ML IV ONE ×2 (11:10)
[2025-05-23] MEDS: METHYLERGONOVINE MALEATE 0.2 MG/ML AMP IM PRN (11:11)
[2025-05-23] MEDS: ONDANSETRON ODT 4 MG TAB PO PRN (11:12)
[2025-05-23] MEDS ORDERED: TRANEXAMIC ACID 1,000 mg/10ml INJ VIAL IV ONE (12:32)
[2025-05-23] MEDS: AMPICILLIN SOD 2GM INJ 2 GM in SODIUM CHL 0.9% 100 ML IV SCH (12:36)
[2025-05-23 15:00] VITALS: BP 112/66; PULSE 86; RESP 18; TEMP 97.7
[2025-05-23 18:30] VITALS: BP 116/62; PULSE 84; RESP 16; TEMP 97.6; O2SAT 98
[2025-05-23] MEDS: IBUPROFEN 600 MG TAB PO PRN (19:24)
[2025-05-23] MEDS: DOCUSATE SOD 100 MG CAP PO SCH (22:00)
[2025-05-23 23:15] VITALS: BP 107/63; PULSE 76; RESP 16; TEMP 98.2; O2SAT 97
[2025-05-24] MEDS ORDERED: IBUP-1454 PO (00:52)
[2025-05-24] MEDS ORDERED: DOCU-94 PO (00:52)
--- NOTE | 2025-05-24 00:57 | DVHPN2 ---
Progress Note Date Seen: May 24, 2025 Subjective -Lochia minimal -Tolerating regular diet well. -Ambulating and voiding well w/o feeling lightheaded or dizzy. -Passing flatus, had one BM -Breast feeding, wants to combo feed at some point, but is exclusively at this time - Contraceptive plan: Patient would like control pills at her 6 week follow-up visit -Desires and requests to be discharged home today (05/24) vital signs Vital Sign Date Time Temp Pulse Resp B/P (MAP) Pulse Ox O2 Delivery O2 Flow Rate FiO2 05/23/25 23:15 98.2 76 16 107/63 (78) 97 98.2 05/23/25 18:30 Room Air Total Intake and Output 05/23/25 05/23/25 05/24/25 15:00 23:00 07:00 Intake Total 300 ml Output Total 1500 ml 1700 ml Balance -1500 ml -1400 ml medications Current Medications Medications Dose Ordered Sig/Jose Carlos Route Start Time Stop Time Status Last Admin Dose Admin Ruth Cat 1 pad PRN PRN TOP 05/21/25 16:15 05/21/25 22:09 1 PAD Sodium Lauryl Sulfate 240 ml PRN PRN TOP 05/21/25 16:15 05/21/25 22:09 240 ML Benzocaine 1 applic PRN PRN TOP 05/21/25 16:15 05/21/25 22:09 1 APPLIC Gentamicin Sulfate 80 mg/ Dextrose 102 ml @ 100 mls/hr Q8HR IV 05/23/25 12:30 Ampicillin Sodium 2 gm/Sodium Chloride 100 ml @ 100 mls/hr Q6HR IV 05/23/25 05:00 05/23/25 18:28 100 MLS/HR Ibuprofen 600 mg Q6HP PRN PO 05/23/25 07:15 05/23/25 19:24 600 MG Acetaminophen 650 mg Q4HP PRN PO 05/23/25 07:15 Ondansetron HCl 4 mg Q4HPRN PRN PO 05/23/25 07:15 05/23/25 11:12 4 MG Docusate Sodium 200 mg HS PO 05/23/25 22:00 laboratory and microbiology Laboratory Tests 05/21/25 16:10 Test 05/21/25 16:10 Range/Units Serum Glucose 79 74-106 mg/dL Objective -A&O x4. No apparent distress. Affect appropriate -Afebrile, VSS -Chest: heart and lung sounds normal. -Breasts: Nipples intact w/o cracks or soreness -Abdomen: normal BS, soft, non-tender, no rebound or guarding, fundus firm @ U- 1, lochia minimal -Perineum:- no edema, or erythema, Incision site with sutures intact, edges in good approximation. -Extremities: no edema or tenderness Problems(with codes): (1) Precipitous drop in hematocrit (2) (normal spontaneous vaginal delivery) (3) Laceration of labia minora Assessment/Plan ASSESSMENT -24 yo now ppd #1 s/p doing well. -Blood Type: O+ -Breast feeding -Rubella Immune - hemorrhage with 800 QBL PLAN -Continue pain management with oral medications as previously ordered -Continue adequate fluid intake and adequate fiber in diet to promote regular bowel movements -Encouraged patient to continue taking vitamin and iron -Educated patient on self care and warning signs of PPH, PPD, and pre-eclampsia. Answered all pt questions and concerns Plan discussed with: Patient, Other (partner) Visit Coding OBGYN Date of Service: May 24, 2025 Billing Provider: JULIAN RIVERA CNM SENIOR ENVIRONMENTAL SCIENTIST Common Visit Codes: [id number] INP/OBS CARE(MOD) JULIAN RIVERA CNM May 24, 2025 00:57
--- NOTE | 2025-05-24 01:01 | DVHDS2 ---
Obstetrics Discharge Summary Obstetrics Discharge Summary Date of Admission: May 21, 2025 Date of Discharge: May 24, 2025 Reason For Admission: Induction of Labor Intrapartum Procedures: Spontaneous vaginal deliv Procedures: Antibiotics Operative Complicat: Laceration (bilateral labial ) Discharge Diagnosis: Term -Delivered, Amnionitis (Chorioamnionitis, treated with antibiotics) Discharge Information: Activity (Unrestricted. Advance as tolerated. Balance activities with rest periods. No heavy lifting, pushing or straining. Pelvic r est x 6 weeks), Diet (Routine regular diet rich in fiber, protein, iron and vitamin C with adequate fluid intake.), Medications (Ibuprofen 600mg every 6 hours as needed for pain. Colace 100mg twice a day as needed to keep bowel movements soft and prevent constipation. Continue Vitamin and iron), Discharge to (Home), Discarge date (05/24/25) Discharge Care Plan Instructions - self care instructions given - emergency signs and symptoms including but not limited to pre-eclampsia precautions and signs of infection, PPH & of PPD reviewed with patient. -Follow up with OB Provider in 2 weeks and again at 6 weeks Visit Coding OBGYN Date of Service: May 24, 2025 Billing Provider: JULIAN RIVERA CNM [employer] Common Visit Codes: [id number]/[id number] DISCH DAY >30MIN JULIAN RIVERA CNM May 24, 2025 01:01
[2025-05-24 03:30] VITALS: BP 93/51; PULSE 81; RESP 16; TEMP 97.7; O2SAT 100
[2025-05-24] MEDS: GENTAMICIN SULFATE 80 MG in D5W 5% 100 ML IV SCH (06:13)
[2025-05-24 06:53] VITALS: BP 107/54; PULSE 71; RESP 18; TEMP 97.9; O2SAT 97
[2025-05-24 08:46] LABS: Hematocrit 28.1 % (36.0-46.0); Hemoglobin 9.2 g/dL (12.2-16.2); Mean Corpuscular Hemoglobin 29.5 pg (28.0-32.0); Mean Corpuscular Volume 89.6 fL (80.0-100.0); Nucleated Red Blood Cells % 0.0 %
[2025-05-24 11:30] VITALS: BP 94/52; PULSE 71; RESP 16; O2SAT 96
[2025-05-24 15:30] VITALS: BP 100/60; PULSE 78; RESP 16; TEMP 98; O2SAT 97
[2025-05-24 16:24] VITALS: BP 100/60; PULSE 78; RESP 16; TEMP 98; O2SAT 97
== END 2025-05-24 17:15 | disposition home or self-care (01) | DRG 560 ==
LOC: LDRP 11:00 → UNDOADMOB 11:00 → LDRP 11:11 → OBSVTOIN 15:45 → LDRP 17:06
PROVIDERS: ADMIT Obstetrics & Gynecology; ATTEND Obstetrics & Gynecology
PROC: 10E0XZZ Delivery of Products of Conception, External Approach (ICD-10-PCS; principal; 2025-05-23)
PROC: 0UQMXZZ Repair Vulva, External Approach (ICD-10-PCS; 2025-05-23)
PROC: 3E0R3BZ Introduction of Anesthetic Agent into Spinal Canal, Percutaneous Approach (ICD-10-PCS; 2025-05-23)
PROC: 00HU33Z Insertion of Infusion Device into Spinal Canal, Percutaneous Approach (ICD-10-PCS; 2025-05-23)
DX: O48.0 Post-term pregnancy (principal); Z37.0 Single live birth; O41.1230 Chorioamnionitis, third trimester, not applicable or unspecified; O72.1 Other immediate postpartum hemorrhage; Z3A.40 40 weeks gestation of pregnancy; D50.9 Iron deficiency anemia, unspecified; O70.0 First degree perineal laceration during delivery; O76 Abnormality in fetal heart rate and rhythm complicating labor and delivery; O90.81 Anemia of the puerperium
CPT/HCPCS: 36415; 59025; 59409; 62282; 76805; 76819; 80053; 80307; 81001; 81002; 85025; 85610; 85730; 86780; 86803; 86850; 86900; 86901; 93005; 94760; 94762; 96360; 96361; 96365; 96366; G0378; J0131; J2003; J2590; J7060; Q0162

== ENCOUNTER 2025-08-02 11:52 | Emergency (ER) | payer MEDICAID, OTHER ==
[~2025-08-02] VITALS: Ht 172.7 cm; Wt 82.1 kg
[~2025-08-02 11:52] MED LIST changes: +DOCU-94 PO; +IBUP-1454 PO
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
[2025-08-02 14:08] VITALS: BP 105/67; PULSE 56; RESP 18; TEMP 98.2; O2SAT 97
[2025-08-02] MEDS ORDERED: IBUP-1454 PO (14:08)
== END 2025-08-02 14:14 | disposition home or self-care (01) ==
LOC: ER 11:52
DX: S80.01XA Contusion of right knee, initial encounter (principal); V89.2XXA Person injured in unspecified motor-vehicle accident, traffic, initial encounter; Y93.I9 Activity, other involving external motion; Y92.488 Other paved roadways as the place of occurrence of the external cause; Y99.8 Other external cause status
CPT/HCPCS: 73562